=== PATIENT | male | born 2000 | race Two or more races ===

== ENCOUNTER 2024-11-09 14:20 | Outpatient (OUT) | payer BC, SELFPAY ==
--- OUTSIDE RECORDS SUMMARY | 2024-11-09 14:26 | XMS_ITS | Clinical Summary ---
Author Organization [facility] Address [address] [place] [address] Care Team Providers Care Optimization Specialist Name Role Phone Unavailable Primary Care Provider Unavailabl e Allergies Active Allergy Reactions Criticality Noted Date Comments Paroxetine Low 10/20/2024 Decreased Libido Medications No known medications Active Problems Problem Noted Date Diagnosed Date Anxiety 10/20/2024 Panic attacks 10/20/2024 Encounters Date Type Department Care Team Description 10/26/2024 Telephone [facility] [address] [facility] [address] [place] [address] Leanna Fay PA 10/20/2024 10:00 AM EDT Office Visit [facility] [address] [facility] [facility] [address] [place] [address] Leanna Fay PA Racing heart beat (Primary Dx); Chronic fatigue; Current every day nicotine vaping; Panic attacks ; Anxiety 10/20/2024 [facility] [address] [facility] [address] [place] [address] Leanna Fay PA 10/20/2024 Travel from Last 3 Months Family History Medical History Relation Name Comments Diabetes Father Diabetes Mother Heart disease Paternal Grandfather Relation Name Status Comments Father Alive Mother Alive Paternal Grandfather Social History Tobacco Use Types Packs/Day Years Used Date Smoking Tobacco: Never Smokeless Tobacco: Never Tobacco Cessation:Counseling Given: Not Answered Alcohol Use Standard Drinks/Week Comments Not Currently 0 (1 standard drink = 0.6 oz pur e alcohol) PHQ-2 Answer Date Recorded Patient Health Questionnaire-2 Score 0 10/20/2024 Sex and Gender Information Value Date Recorded Sex Assigned at Not on file Legal Sex Male 7:18 PM EDT Gender Identity Not on file Sexual Orientation Not on file Last Filed Vital Signs Vital Sign Reading Time Taken Comments Blood Pressure 110/82 10/20/2024 9:59 AM EDT Pulse 73 10/20/2024 9:59 AM EDT 99 standing Temperature - - Respiratory Rate 16 10/20/2024 9:59 AM EDT Oxygen Saturation 99% 10/20/2024 9:5 9 AM EDT Inhaled Oxygen Concentration - - Weight 57.3 kg (126 lb 6.4 oz) 10/21/19 9:59 AM EDT Height 171.5 cm (5' 7.5 ) 10/20/2024 9: 59 AM EDT Body Mass Index 19.5 10/20/2024 9:59 AM EDT Plan of Treatment Upcoming Encounters Date Type Department Care Team (Late st Contact Info) Description 01/18/2025 10:30 AM EST Office Visit [facility] [address] [place] [address] Leanna Fay PA [address] [place] [address] Health Maintenance Due Date Last Done Comments Influenza Vaccine (#1) 2024 03/31/2022, 2020, 05/10/2020 Insurance BS
== END 2024-11-09 14:21 | disposition home or self-care (01) ==
LOC: CARD 14:23
PROVIDERS: Visit Provider Physician Assistant
DX: R00.0 Tachycardia, unspecified (principal)
CPT/HCPCS: 93246